=== PATIENT | male | born 1965 | race Two or more races ===

== ENCOUNTER 2024-06-19 22:21 | Emergency (ER) | payer OTHER ==
[~2024-06-19] VITALS: Ht 154.9 cm; Wt 68.0 kg
[~2024-06-19 22:21] MED LIST: DIOVAN HCT 320/1 TA1
[2024-06-19] MEDS ORDERED: HYZAAR 100-251 EACH PO (22:31)
[2024-06-19] MEDS ORDERED: NIFEDIPINE20 MG (22:31)
[2024-06-19] MEDS ORDERED: TOPROL XL50 M1 PO (22:31)
[2024-06-20] MEDS ORDERED: PROMETHAZINE HCL 25 MG/ML AMPUL IM STA (00:07)
[2024-06-20] MEDS ORDERED: METOCLOPRAMIDE HCL 5 MG/ML VIAL IM STA (00:07)
[2024-06-20] MEDS ORDERED: KETOROLAC TROMETHAMINE 30 MG VIAL IV STA (00:09)
[2024-06-20] MEDS ORDERED: GLUCAGON 1 MG VIAL SUBCUTANEO STA (03:49)
[2024-06-20] MEDS ORDERED: 0.9 % SODIUM CHLORIDE 1,000 ML IV STA (03:49)
[2024-06-20] MEDS ORDERED: LORazepam 2 MG/ML VIAL IM STA (03:50)
[2024-06-20 04:11] LABS: HEMATOCRIT 42.4 % (39.0-48.0); MEAN CELL VOLUME 85.4 fL (80.0-100.00); MEAN CORPUSCULAR HEMOGLOBIN 30.2 pg (27.00-32.0); MEAN CORPUSCULAR HGB CONC 35.3 g/dl (32.0-36.0); PLATELET COUNT 304 K/uL (150-450); RED BLOOD COUNT 4.96 M/uL (4.00-6.00); RED CELL DISTRIBUTION WIDTH 13.8 % (11.5-14.5)
[2024-06-20 04:35] LABS: INR 1.01; PARTIAL THROMBOPLASTIN TIME 24.5 SECONDS (22.0-34.0)
[2024-06-20 05:05] LABS: BILIRUBIN TOTAL 0.53 mg/dL (0.3-1.2); CALCIUM 9.2 mg/dL (8.5-10.1); CREATININE SERUM 1.15 mg/dL (0.70-1.30); GFR 65.31; GLOBULINA 4.2 G/DL (2.4-3.5); POTASSIUM 4.4 mEq/L (3.5-5.1); TOTAL PROTEIN 8.2 gm/dL (6.4-8.2)
== END 2024-06-20 08:40 | disposition home or self-care (01) ==
LOC: ER 22:24
DX: R13.10 Dysphagia, unspecified (principal); I10 Essential (primary) hypertension